=== PATIENT | male | born 1960 | race Caucasian/White ===

== ENCOUNTER 2019-02-21 19:28 | Inpatient (IN) | payer SELFPAY ==
[~2019-02-21] VITALS: Ht 177.8 cm; Wt 122.7 kg
[2019-02-21] VITALS (9 sets, daily range): BP systolic 142–187; BP diastolic 82–113
[~2019-02-21 19:28] MED LIST: ACCUPRIL20 MG PO; AMOXICILLIN500 M2 PO; COREG25 MG PO; DAYPRO600 M1; DAYPRO600 M1 PO; KEFLEX500 MG PO; MOTRIN600 MG PO; PERCOCET 325 MG1 TA2 PO; PHENERGAN25 M1 PO; TRAMADOL HCL50 MG PO
[2019-02-21 20:16] LABS: BASO % 0.4 % (0.0-1.0); EOS # 0.1 10*3/uL (0.0-0.4); EOS % 1.6 % (1.0-4.0); HEMATOCRIT 41.9 % (42.0-52.0); HEMOGLOBIN 13.3 g/dl (14.0-18.0); LYMPH # 2.7 10*3/uL (1.3-4.4); LYMPH % 37.9 % (27.0-41.0); MEAN CELL VOLUME 89.9 fl (80.0-94.0); MEAN CORPUSCULAR HGB 28.5 pg (27.0-31.0); MEAN CORPUSCULAR HGB CONC 31.7 g/dl (33.0-37.0); MEAN PLATELET VOLUME 10.9 fl (9.6-12.3); MONO # 0.8 10*3/uL (0.1-1.0); MONO % 11.3 % (3.0-9.0); NEUT # 3.4 10*3/uL (2.3-7.9); NEUT % 48.7 % (47.0-73.0); PLATELET COUNT AUTOMATED 196 10*3/uL (130-400); RED BLOOD COUNT 4.66 10*6/uL (4.50-5.90); RED CELL DISTRI WIDTH 13.3 % (0-14.5)
[2019-02-21 20:27] LABS: ACT PARTIAL THROMBO TIME 24.3 SECONDS (20.0-32.1)
[2019-02-21 20:34] LABS: ALBUMIN 3.6 gm/dl (3.1-4.5); ALKALINE PHOSPHATASE 96 U/L (45-117); BUN 22 mg/dl (7-24); CHLORIDE 105 mmol/L (98-107); CREATININE 1.09 mg/dL (0.70-1.30); POTASSIUM 4.3 mmol/L (3.5-5.1); SGOT/AST 13 IU/L (3-35); SGPT/ALT 21 U/L (12-78); SODIUM 140 mmol/L (136-145); TOTAL PROTEIN 7.4 gm/dL (6.4-8.2)
[2019-02-21 20:37] LABS: TROPONIN I < 0.015 ng/ml (<0.045)
--- NOTE | 2019-02-21 23:18 | NUR ---
SUE MC STATES THAT CHARLOTTE BEEBE DID NOT GIVE HER REPORT BEFORE LEAVING. STATES SHE DOES NOT KNOW MUCH ABOUT THE PATIENT AND I WILL HAVE TO LOOK MOST THINGS UP.
--- NOTE | 2019-02-21 23:20 | NUR ---
A 58, admitted to , under the services of JOSE MIGUEL Fontenot DO with a diagnosis of CHEST PAIN. Chief complaint is CHEST PAIN. Patient arrived via stretcher from ER. Monitor applied. Initial assessment completed. Vital signs taken and recorded. JOSE MIGUEL FONTENOT DO notified of admission to the unit. Orders received. See assessment for past medical history, medications and allergies. Patient and/or family oriented to unit. [facility]. Clothing/patient valuable form completed. SHERLYN URENA
--- NOTE | 2019-02-21 23:28 | NUR ---
MED REC COMPLETED WITH PATIENT ALERT AND ORIENTED
--- NOTE | 2019-02-21 23:42 | NUR ---
DR IGNACIO'S ANSWERING SERVICE AWARE OF CONSULT
[2019-02-22] VITALS: BP 152/82
[2019-02-22 04:00] VITALS: BP 114/66
[2019-02-22 06:17] LABS: BASO % 0.5 % (0.0-1.0); EOS # 0.1 10*3/uL (0.0-0.4); HEMATOCRIT 39.6 % (42.0-52.0); HEMOGLOBIN 12.6 g/dl (14.0-18.0); LYMPH # 2.5 10*3/uL (1.3-4.4); LYMPH % 41.4 % (27.0-41.0); MEAN CELL VOLUME 88.6 fl (80.0-94.0); MEAN CORPUSCULAR HGB 28.2 pg (27.0-31.0); MEAN CORPUSCULAR HGB CONC 31.8 g/dl (33.0-37.0); MEAN PLATELET VOLUME 11.2 fl (9.6-12.3); MONO # 0.8 10*3/uL (0.1-1.0); MONO % 13.3 % (3.0-9.0); NEUT # 2.6 10*3/uL (2.3-7.9); NEUT % 42.6 % (47.0-73.0); PLATELET COUNT AUTOMATED 195 10*3/uL (130-400); RED BLOOD COUNT 4.47 10*6/uL (4.50-5.90); RED CELL DISTRI WIDTH 13.4 % (0-14.5)
[2019-02-22 06:49] LABS: ALBUMIN 3.2 gm/dl (3.1-4.5); ALKALINE PHOSPHATASE 86 U/L (45-117); BUN 19 mg/dl (7-24); CHLORIDE 105 mmol/L (98-107); CHOLESTEROL 146 mg/dL (<200); CREATININE 0.87 mg/dL (0.70-1.30); FREE T4 0.88 ng/dl (0.76-1.46); HDL CHOLESTEROL 72 mg/dl (40-60); LDL CHOLESTEROL 48 mg/dL (9-159); PHOSPHOROUS 3.4 mg/dL (2.5-4.9); POTASSIUM 3.9 mmol/L (3.5-5.1); SGOT/AST 10 IU/L (3-35); SGPT/ALT 18 U/L (12-78); SODIUM 141 mmol/L (136-145); TOTAL PROTEIN 6.4 gm/dL (6.4-8.2); TRIGLYCERIDES 128 mg/dl (<150); VLDL CHOLESTEROL 26 mg/dL (6-40)
--- NOTE | 2019-02-22 08:00 | NUR ---
PT RESTING IN BED. RESP-EASY AND REGULAR. NO C/O AT THIS TIME. CALL LIGHT IN REACH. SEE SHIFT ASSESSMENT.
[2019-02-22 08:15] LABS: VITAMIN D, 25-HYDROXY 12.6 ng/mL (30-100)
[2019-02-22 08:30] VITALS: BP 118/72
--- NOTE | 2019-02-22 09:00 | NUR ---
Collection Analyst in to talk to patient. Patient states lives at home with alone. There are few steps in the home. Physician: john lucio Pharmacy: [facility] health services: none Patient's level of ADLs: INDEPENDENT Patient has working utilities: all working DME: none Follow-up physician's appointment after d/c: will be made by hospitalist nurse director upon discharge Does patient want to access PORTAL?: no Discharge plan discussed with patient, he lives at home alone, he is independent in adls and ambulation, works, drives, he will return home when medically stable and denies any home needs, case management will follow. SHANICE ABERNATHY
--- NOTE | 2019-02-22 11:10 | NUR ---
INFORMED CONSENT OBTAINED FOR LEXISCAN NUCLEAR STRESS TEST WITH DR. IGNACIO. RESTING EKG NSR WITH A RESTING HR OF 82 WITH BP OF 148/98. HAS INVERTED T WAVES IN LEADS II,III,AVF AND V4-V6. LUNGS WITH DIMINISHED BS WITH SPO2 OF 98% ON ROOM AIR. PT COMPLETED A 1:00 LEXISCAN PROTOCOL RECEIVING LEXISCAN 0.4 MG IV OVER 10 SECONDS. EKG NONDIAGNOSTIC WITH T WAVE INVERSIONS. HAD NO CHEST PAIN BUT DID C/O NAUSEA AND HEADACHE THAT WAS RELIEVED IN RECOVERY. HAD A PEAK HR OF 87 WITH BP OF 138/74. LAST RECOVERY HR OF 93 WITH BP OF 138/80. AWAITING SCANNING IN STABLE CONDITION.
[2019-02-22 12:00] VITALS: BP 132/79
--- NOTE | 2019-02-22 12:00 | NUR ---
RESTING IN BED. NO C/O AT THIS TIME. CALL LIGHT IN REACH.
--- NOTE | 2019-02-22 12:25 | NUR ---
[facility] RADIOLOGY RADIOLOGIST CALLED WITH +DVT IN LEFT AND MADE AWARE THROMBOPHLEBITS IN RIGHT. CALLED DR. BELL/DANIELLE MADE AWARE.
--- NOTE | 2019-02-22 13:30 | NUR ---
BSG-181, SEE EMAR. NO C/O AT THIS TIME. PT ADVISED TO STAY IN BED AND USED URINAL.
--- NOTE | 2019-02-22 14:00 | NUR ---
TOLERATED XARELTO, NO COMPLAINTS AT THIS TIME.
[2019-02-22 16:00] VITALS: BP 147/97
--- NOTE | 2019-02-22 16:10 | NUR ---
Patient resting quietly with no c/o discomfort. Respirations easy and regular. Vital signs stable. No overt distress. BAMBI THACKER
--- NOTE | 2019-02-22 17:46 | NUR ---
per dr parker resume coreg and quinapril
[2019-02-22 20:00] VITALS: BP 130/80
[2019-02-23] VITALS (7 sets, daily range): BP systolic 82–117; BP diastolic 52–77
--- NOTE | 2019-02-23 00:48 | NUR ---
NOTIFIED DR. CORSS OF LOW BLOOD PRESSURE ONLY ORDER WAS TO RECHECK BP BEFORE ANY GIVING ANY BP MEDICATIONS. NO OTHER ORDERS.
--- NOTE | 2019-02-23 01:54 | NUR ---
24 HR chart check completed.
[2019-02-23 06:28] LABS: BASO % 0.6 % (0.0-1.0); EOS # 0.1 10*3/uL (0.0-0.4); EOS % 2.6 % (1.0-4.0); HEMATOCRIT 41.4 % (42.0-52.0); HEMOGLOBIN 13.6 g/dl (14.0-18.0); LYMPH % 37.6 % (27.0-41.0); MEAN CELL VOLUME 87.9 fl (80.0-94.0); MEAN CORPUSCULAR HGB 28.9 pg (27.0-31.0); MEAN CORPUSCULAR HGB CONC 32.9 g/dl (33.0-37.0); MEAN PLATELET VOLUME 10.7 fl (9.6-12.3); MONO # 0.7 10*3/uL (0.1-1.0); MONO % 12.2 % (3.0-9.0); NEUT # 2.5 10*3/uL (2.3-7.9); NEUT % 46.8 % (47.0-73.0); PLATELET COUNT AUTOMATED 201 10*3/uL (130-400); RED BLOOD COUNT 4.71 10*6/uL (4.50-5.90); RED CELL DISTRI WIDTH 13.3 % (0-14.5); WHITE BLOOD COUNT 5.4 10*3/uL (4.8-10.8)
--- NOTE | 2019-02-23 06:33 | NUR ---
CALLED DR. CROSS AND ORDERS TO HOLD BP MEDICATION AND IV LASIX.
[2019-02-23 06:56] LABS: BUN 21 mg/dl (7-24); CHLORIDE 103 mmol/L (98-107); CREATININE 1.17 mg/dL (0.70-1.30); SODIUM 139 mmol/L (136-145)
--- NOTE | 2019-02-23 09:00 | NUR ---
PT RESTING IN BED EATING. RESP-EASY AND REGULAR. NO C/O AT THIS TIME. CALL LIGHT IN REACH. SEE SHIFT ASSESSMENT.
--- NOTE | 2019-02-23 09:00 | NUR ---
case management visits with patient, he states he will return home when medically stable, case management will follow
--- NOTE | 2019-02-23 17:00 | NUR ---
PT RESTING INB ED. BSG-211, SEE EMAR. NO C/O AT THIS TIME. CALL LIGHT IN REACH.
--- NOTE | 2019-02-24 04:48 | NUR ---
24 HR chart check completed.
--- NOTE | 2019-02-24 05:40 | NUR ---
BP CHECK AND CALLED DR. MAURER AND HOLDING COREG AND LASIX AT THIS TIME D/T LOW BP.
[2019-02-24 06:47] LABS: BASO % 0.6 % (0.0-1.0); EOS # 0.2 10*3/uL (0.0-0.4); EOS % 2.4 % (1.0-4.0); LYMPH # 2.7 10*3/uL (1.3-4.4); LYMPH % 41.7 % (27.0-41.0); MEAN CELL VOLUME 89.1 fl (80.0-94.0); MEAN CORPUSCULAR HGB 28.3 pg (27.0-31.0); MEAN CORPUSCULAR HGB CONC 31.8 g/dl (33.0-37.0); MEAN PLATELET VOLUME 11.1 fl (9.6-12.3); MONO # 0.9 10*3/uL (0.1-1.0); MONO % 13.4 % (3.0-9.0); NEUT # 2.7 10*3/uL (2.3-7.9); NEUT % 41.6 % (47.0-73.0); PLATELET COUNT AUTOMATED 186 10*3/uL (130-400); RED BLOOD COUNT 4.94 10*6/uL (4.50-5.90); RED CELL DISTRI WIDTH 13.6 % (0-14.5); WHITE BLOOD COUNT 6.6 10*3/uL (4.8-10.8)
[2019-02-24 07:28] LABS: CHLORIDE 104 mmol/L (98-107); SODIUM 141 mmol/L (136-145)
[2019-02-24 07:32] LABS: CREATININE 1.16 mg/dL (0.70-1.30)
[2019-02-24 07:50] LABS: BUN 32 mg/dl (7-24)
[2019-02-24 08:30] VITALS: BP 94/62
--- NOTE | 2019-02-24 08:31 | NUR ---
DR YEAGER IN PT ROOM AND IS NOTIFIED OF PT BP
[2019-02-24 08:53] VITALS: BP 104/62
--- NOTE | 2019-02-24 08:53 | NUR ---
CALLED DR YEAGER TO UPDATE HIM ON NEW BP 104/62 AND HE STATES TO HOLD LISINOPRIL AND THE ALDACTONE
--- NOTE | 2019-02-24 09:00 | NUR ---
case management visits with patient, patient a possible discharge to home today, denies any home needs
[2019-02-24 12:00] VITALS: BP 123/68
[2019-02-24] MEDS ORDERED: ALDACTONE25 MG PO (14:07)
[2019-02-24] MEDS ORDERED: VITAMIN D5000 UNIT PO (14:07)
[2019-02-24] MEDS ORDERED: CARVEDILOL6.25 MG PO (14:07)
[2019-02-24] MEDS ORDERED: XARELTO1 EACH PO (14:07)
[2019-02-24] MEDS ORDERED: LISINOPRIL10 M1 PO (14:07)
[2019-02-24] MEDS ORDERED: XARELTO20 M1 PO (14:07)
[2019-02-24] MEDS ORDERED: LASIX40 MG PO (14:07)
--- NOTE | 2019-02-24 14:46 | NUR ---
Discharge instructions reviewed with patient/family. Patient receptive and verbalizes understanding. Follow-up care arranged. Written instructions given to patienT. PATIENT IS ADVISED TO GO TO FLOOR 3 TO C S S REPRESENTATIVE MEDICATIONS AT THE [facility]. HEART MONITOR REMOVED AND IV IS TAKEN OUT. WORK EXCUSE IS GIVEN TO THE PATIENT AND PT STATES THAT HE UNDERSTANDS HIS DISCHARGE INSTRUCTIONS
--- NOTE | 2019-02-24 14:49 | NUR ---
PT LEAVING THE FLOOR AT THIS TIME AND HAS ALL OF HIS BELONGINGS.
== END 2019-02-24 15:17 | disposition home or self-care (01) | DRG 300 ==
LOC: ED 19:28 → EDHOLD 21:28 → 4E 21:28
PROVIDERS: Emergency Medicine; Family Medicine; Internal Medicine; ADMIT Internal Medicine
PROC: 4A02XM4 Measurement of Cardiac Total Activity, External Approach (ICD-10-PCS; principal; 2019-02-22)
PROC: 3E073KZ Introduction of Other Diagnostic Substance into Coronary Artery, Percutaneous Approach (ICD-10-PCS; principal; 2019-02-22)
DX: I82.432 Acute embolism and thrombosis of left popliteal vein (principal); I16.1 Hypertensive emergency; I50.40 Unspecified combined systolic (congestive) and diastolic (congestive) heart failure; I82.412 Acute embolism and thrombosis of left femoral vein; I82.442 Acute embolism and thrombosis of left tibial vein; I08.1 Rheumatic disorders of both mitral and tricuspid valves; E11.65 Type 2 diabetes mellitus with hyperglycemia; D64.9 Anemia, unspecified; K21.9 Gastro-esophageal reflux disease without esophagitis; E53.8 Deficiency of other specified B group vitamins; E55.9 Vitamin D deficiency, unspecified; I11.0 Hypertensive heart disease with heart failure; I95.9 Hypotension, unspecified; I25.10 Atherosclerotic heart disease of native coronary artery without angina pectoris; Z88.1 Allergy status to other antibiotic agents; Z82.49 Family history of ischemic heart disease and other diseases of the circulatory system; Z83.3 Family history of diabetes mellitus

== ENCOUNTER → 2019-12-16 | Outpatient (CLI) | payer SELFPAY ==
[~2019-12-16] MED LIST changes: +ALDACTONE25 MG PO; +CARVEDILOL6.25 MG PO; +LASIX40 MG PO; +LISINOPRIL10 M1 PO; +VITAMIN D5000 UNIT PO; +XARELTO1 EACH PO; +XARELTO20 M1 PO
== END | disposition home or self-care (01) ==
LOC: RESCLI 09:54
PROVIDERS: ATTEND Emergency Medicine
DX: E11.65 Type 2 diabetes mellitus with hyperglycemia (principal); I11.0 Hypertensive heart disease with heart failure; I50.22 Chronic systolic (congestive) heart failure; K21.00 Gastro-esophageal reflux disease with esophagitis, without bleeding; I82.523 Chronic embolism and thrombosis of iliac vein, bilateral; Z79.899 Other long term (current) drug therapy; Z88.0 Allergy status to penicillin

== ENCOUNTER → 2019-12-16 | Outpatient (CLI) | payer SELFPAY ==
[2019-12-16 08:10] LABS: BASO % 0.4 % (0.0-1.0); EOS # 0.1 10*3/uL (0.0-0.4); EOS % 1.9 % (1.0-4.0); HEMATOCRIT 38.9 % (42.0-52.0); LYMPH % 38.5 % (27.0-41.0); MEAN CELL VOLUME 87.4 fl (80.0-94.0); MEAN CORPUSCULAR HGB 28.5 pg (27.0-31.0); MEAN CORPUSCULAR HGB CONC 32.6 g/dl (33.0-37.0); MEAN PLATELET VOLUME 10.4 fl (9.6-12.3); MONO # 0.6 10*3/uL (0.1-1.0); MONO % 12.1 % (3.0-9.0); NEUT # 2.4 10*3/uL (2.3-7.9); NEUT % 46.9 % (47.0-73.0); PLATELET COUNT AUTOMATED 190 10*3/uL (130-400); RED BLOOD COUNT 4.45 10*6/uL (4.50-5.90); RED CELL DISTRI WIDTH 12.4 % (0-14.5); WHITE BLOOD COUNT 5.2 10*3/uL (4.8-10.8)
[2019-12-16 08:47] LABS: ALBUMIN 3.7 gm/dl (3.1-4.5); ALKALINE PHOSPHATASE 93 U/L (45-117); BILIRUBIN, DIRECT 0.1 mg/dL (0.0-0.2); BUN 18 mg/dl (7-24); CHLORIDE 101 mmol/L (98-107); CREATININE 0.99 mg/dL (0.70-1.30); POTASSIUM 4.3 mmol/L (3.5-5.1); SGOT/AST 17 IU/L (3-35); SGPT/ALT 22 U/L (12-78); SODIUM 135 mmol/L (136-145); TOTAL PROTEIN 7.3 gm/dL (6.4-8.2)
== END | disposition home or self-care (01) ==
LOC: LAB 07:53
PROVIDERS: ATTEND Family Medicine
DX: I10 Essential (primary) hypertension (principal); E11.9 Type 2 diabetes mellitus without complications

== ENCOUNTER → 2020-03-30 | Outpatient (CLI) | payer SELFPAY | END | disposition home or self-care (01) | LOC: RESCLI 01:34 | PROVIDERS: ATTEND Internal Medicine | DX: E11.65 Type 2 diabetes mellitus with hyperglycemia (principal); I11.0 Hypertensive heart disease with heart failure; I50.22 Chronic systolic (congestive) heart failure; I82.523 Chronic embolism and thrombosis of iliac vein, bilateral; E55.9 Vitamin D deficiency, unspecified; E53.8 Deficiency of other specified B group vitamins; G56.22 Lesion of ulnar nerve, left upper limb; E11.42 Type 2 diabetes mellitus with diabetic polyneuropathy; K21.9 Gastro-esophageal reflux disease without esophagitis; Z79.899 Other long term (current) drug therapy; Z88.0 Allergy status to penicillin ==

== ENCOUNTER → 2020-03-31 | Outpatient (CLI) | payer SELFPAY ==
[2020-03-31 10:50] LABS: CHOLESTEROL 182 mg/dL (<200); HDL CHOLESTEROL 83 mg/dl (40-60); LDL CHOLESTEROL 66 mg/dL (9-159); TRIGLYCERIDES 167 mg/dl (<150); VLDL CHOLESTEROL 33 mg/dL (6-40)
[2020-03-31 11:15] LABS: VITAMIN D, 25-HYDROXY 7.2 ng/mL (30-100)
== END | disposition home or self-care (01) ==
LOC: LAB 09:30
PROVIDERS: ATTEND Hospitalist
DX: E11.65 Type 2 diabetes mellitus with hyperglycemia (principal); E55.9 Vitamin D deficiency, unspecified; E53.8 Deficiency of other specified B group vitamins

== ENCOUNTER → 2020-04-16 | Outpatient (CLI) | payer SELFPAY | END | disposition home or self-care (01) | LOC: RESCLI 01:44 | PROVIDERS: ATTEND Internal Medicine Nephrology | DX: R07.9 Chest pain, unspecified (principal); I50.22 Chronic systolic (congestive) heart failure; E11.42 Type 2 diabetes mellitus with diabetic polyneuropathy; I82.523 Chronic embolism and thrombosis of iliac vein, bilateral; E55.9 Vitamin D deficiency, unspecified; H61.20 Impacted cerumen, unspecified ear; K21.9 Gastro-esophageal reflux disease without esophagitis; I11.0 Hypertensive heart disease with heart failure; I50.9 Heart failure, unspecified; H72.91 Unspecified perforation of tympanic membrane, right ear; E78.2 Mixed hyperlipidemia; Z88.0 Allergy status to penicillin; Z79.899 Other long term (current) drug therapy; Z79.84 Long term (current) use of oral hypoglycemic drugs ==

== ENCOUNTER → 2020-08-03 | Outpatient (CLI) | payer SELFPAY | END | disposition home or self-care (01) | LOC: RESCLI 01:45 | PROVIDERS: ATTEND Internal Medicine | DX: I11.0 Hypertensive heart disease with heart failure (principal); I50.22 Chronic systolic (congestive) heart failure; E78.2 Mixed hyperlipidemia; E11.42 Type 2 diabetes mellitus with diabetic polyneuropathy; E55.9 Vitamin D deficiency, unspecified; H57.12 Ocular pain, left eye; Z79.899 Other long term (current) drug therapy ==

== ENCOUNTER → 2020-10-17 | Outpatient (CLI) | payer SELFPAY ==
[2020-10-17 15:15] LABS: BASO % 0.3 % (0.0-1.0); EOS # 0.1 10*3/uL (0.0-0.4); EOS % 1.5 % (1.0-4.0); HEMATOCRIT 38.9 % (42.0-52.0); LYMPH # 2.1 10*3/uL (1.3-4.4); LYMPH % 34.9 % (27.0-41.0); MEAN CELL VOLUME 87.2 fl (80.0-94.0); MEAN CORPUSCULAR HGB 28.7 pg (27.0-31.0); MEAN CORPUSCULAR HGB CONC 32.9 g/dl (33.0-37.0); MEAN PLATELET VOLUME 10.7 fl (9.6-12.3); MONO # 0.7 10*3/uL (0.1-1.0); MONO % 11.3 % (3.0-9.0); NEUT # 3.1 10*3/uL (2.3-7.9); NEUT % 51.7 % (47.0-73.0); PLATELET COUNT AUTOMATED 200 10*3/uL (130-400); RED BLOOD COUNT 4.46 10*6/uL (4.50-5.90); RED CELL DISTRI WIDTH 13.1 % (0-14.5)
[2020-10-18 11:07] LABS: CREATININE,URINE 32.5 mg/dL (Not Estab.); MICRO ALBUMIN/CRE RATIO <9 (0-29)
== END | disposition home or self-care (01) ==
LOC: LAB 01:08 → RESCLI 01:08
PROVIDERS: Internal Medicine; ATTEND Internal Medicine Nephrology
DX: E55.9 Vitamin D deficiency, unspecified (principal); E11.42 Type 2 diabetes mellitus with diabetic polyneuropathy; I10 Essential (primary) hypertension; E78.2 Mixed hyperlipidemia

== ENCOUNTER → 2021-04-10 | Outpatient (CLI) | payer SELFPAY | END | disposition home or self-care (01) | LOC: RESCLI 01:36 | PROVIDERS: ATTEND Internal Medicine Nephrology | DX: E11.42 Type 2 diabetes mellitus with diabetic polyneuropathy (principal); I11.0 Hypertensive heart disease with heart failure; I50.22 Chronic systolic (congestive) heart failure; E78.5 Hyperlipidemia, unspecified; E55.9 Vitamin D deficiency, unspecified; Z79.899 Other long term (current) drug therapy ==

== ENCOUNTER 2021-06-17 06:07 | Emergency (ER) | payer SELFPAY ==
[~2021-06-17] VITALS: Ht 177.8 cm; Wt 99.8 kg
[2021-06-17 06:43] LABS: BASO % 0.7 % (0.0-1.0); EOS % 0.4 % (1.0-4.0); HEMATOCRIT 39.6 % (42.0-52.0); LYMPH # 0.5 10*3/uL (1.3-4.4); MEAN CELL VOLUME 88.2 fl (80.0-94.0); MEAN CORPUSCULAR HGB CONC 32.8 g/dl (33.0-37.0); MEAN PLATELET VOLUME 10.1 fl (9.6-12.3); MONO # 0.8 10*3/uL (0.1-1.0); MONO % 18.3 % (3.0-9.0); NEUT # 3.2 10*3/uL (2.3-7.9); NEUT % 70.2 % (47.0-73.0); PLATELET COUNT AUTOMATED 190 10*3/uL (130-400); RED BLOOD COUNT 4.49 10*6/uL (4.50-5.90); RED CELL DISTRI WIDTH 13.1 % (0-14.5); WHITE BLOOD COUNT 4.6 10*3/uL (4.8-10.8)
[2021-06-17 06:57] LABS: ALKALINE PHOSPHATASE 83 U/L (45-117); BUN 15 mg/dl (7-24); CHLORIDE 101 mmol/L (98-107); CREATININE 1.02 mg/dL (0.70-1.30); POTASSIUM 4.5 mmol/L (3.5-5.1); SGOT/AST 22 IU/L (3-35); SGPT/ALT 19 U/L (12-78); SODIUM 133 mmol/L (136-145); TOTAL PROTEIN 7.3 gm/dL (6.4-8.2)
== END 2021-06-17 08:17 | disposition home or self-care (01) ==
LOC: ED 06:07
PROVIDERS: Internal Medicine
DX: U07.1 COVID-19 (principal); Z88.1 Allergy status to other antibiotic agents

== ENCOUNTER → 2022-04-15 | Outpatient (CLI) | payer SELFPAY ==
[2022-04-15 13:41] LABS: BASO % 0.5 % (0.0-1.0); EOS # 0.1 10*3/uL (0.0-0.4); EOS % 1.6 % (1.0-4.0); HEMATOCRIT 41.8 % (42.0-52.0); LYMPH # 2.2 10*3/uL (1.3-4.4); LYMPH % 39.3 % (27.0-41.0); MEAN CELL VOLUME 89.7 fl (80.0-94.0); MEAN CORPUSCULAR HGB 29.4 pg (27.0-31.0); MEAN CORPUSCULAR HGB CONC 32.8 g/dl (33.0-37.0); MEAN PLATELET VOLUME 10.3 fl (9.6-12.3); MONO # 0.7 10*3/uL (0.1-1.0); MONO % 11.7 % (3.0-9.0); NEUT # 2.6 10*3/uL (2.3-7.9); NEUT % 46.7 % (47.0-73.0); PLATELET COUNT AUTOMATED 217 10*3/uL (130-400); RED BLOOD COUNT 4.66 10*6/uL (4.50-5.90); RED CELL DISTRI WIDTH 13.2 % (0-14.5); WHITE BLOOD COUNT 5.6 10*3/uL (4.8-10.8)
[2022-04-15 13:58] LABS: ALKALINE PHOSPHATASE 79 U/L (46-116); BUN 14 mg/dl (9-23); CHLORIDE 101 mmol/L (98-107); POTASSIUM 4.2 mmol/L (3.4-5.1); SGPT/ALT 10 U/L (10-49); TOTAL PROTEIN 7.1 gm/dL (6.0-8.0)
== END | disposition home or self-care (01) ==
LOC: RESCLI 13:05
PROVIDERS: Family Medicine; ATTEND Internal Medicine
DX: E11.42 Type 2 diabetes mellitus with diabetic polyneuropathy (principal); E55.9 Vitamin D deficiency, unspecified; E78.2 Mixed hyperlipidemia; I11.0 Hypertensive heart disease with heart failure; I50.22 Chronic systolic (congestive) heart failure; Z88.0 Allergy status to penicillin; Z82.49 Family history of ischemic heart disease and other diseases of the circulatory system; Z79.899 Other long term (current) drug therapy

== ENCOUNTER → 2022-09-17 | Outpatient (CLI) | payer SELFPAY | END | disposition home or self-care (01) | LOC: RESCLI 16:05 | PROVIDERS: ATTEND Internal Medicine | DX: M17.11 Unilateral primary osteoarthritis, right knee (principal); I11.0 Hypertensive heart disease with heart failure; I50.22 Chronic systolic (congestive) heart failure; E11.42 Type 2 diabetes mellitus with diabetic polyneuropathy; E78.2 Mixed hyperlipidemia; E55.9 Vitamin D deficiency, unspecified; E11.9 Type 2 diabetes mellitus without complications; Z88.0 Allergy status to penicillin; Z88.8 Allergy status to other drugs, medicaments and biological substances ==

== ENCOUNTER 2023-10-25 13:54 | Emergency (ER) | payer OTHER ==
[~2023-10-25] VITALS: Ht 180.3 cm; Wt 112.5 kg
[2023-10-25] MEDS ORDERED: Metoclopramide Hydrochloride 10 MG/2 ML AMP IV ONE (14:40)
[2023-10-25] MEDS ORDERED: SODIUM CHLORIDE 0.9% 1,000 ML IV ONE (14:40)
[2023-10-25] MEDS ORDERED: diphenhydrAMINE hydrochloride 50 MG/ML VIAL IV ONE (14:40)
[2023-10-25 15:03] LABS: BASO % 0.2 % (0.0-1.0); EOS # 0.1 10*3/uL (0.0-0.4); EOS % 0.6 % (1.0-4.0); HEMATOCRIT 38.8 % (42.0-52.0); LYMPH # 0.7 10*3/uL (1.3-4.4); LYMPH % 8.4 % (27.0-41.0); MEAN CELL VOLUME 90.4 fl (80.0-94.0); MEAN CORPUSCULAR HGB 29.1 pg (27.0-31.0); MEAN CORPUSCULAR HGB CONC 32.2 g/dl (33.0-37.0); MEAN PLATELET VOLUME 10.8 fl (9.6-12.3); MONO # 1.2 10*3/uL (0.1-1.0); MONO % 13.6 % (3.0-9.0); NEUT # 6.7 10*3/uL (2.3-7.9); PLATELET COUNT AUTOMATED 163 10*3/uL (130-400); RED BLOOD COUNT 4.29 10*6/uL (4.50-5.90); RED CELL DISTRI WIDTH 13.2 % (0-14.5); WHITE BLOOD COUNT 8.7 10*3/uL (4.8-10.8)
[2023-10-25 15:18] LABS: BUN 16 mg/dl (9-23); CHLORIDE 100 mmol/L (98-107); POTASSIUM 4.3 mmol/L (3.4-5.1)
[2023-10-25] MEDS ORDERED: Ondansetron4 MG PO (15:32)
[2023-10-25] MEDS ORDERED: AVPAK AZITHROM250 M1 PO (15:32)
[2023-10-25] MEDS ORDERED: ANTI-DIARRHEAL2 MG PO (15:32)
== END 2023-10-25 16:05 | disposition home or self-care (01) ==
LOC: ED 13:54
PROVIDERS: Emergency Medicine
DX: J32.9 Chronic sinusitis, unspecified (principal); Z20.822 Contact with and (suspected) exposure to COVID-19; R11.2 Nausea with vomiting, unspecified; R19.7 Diarrhea, unspecified; E11.9 Type 2 diabetes mellitus without complications; I10 Essential (primary) hypertension; E78.5 Hyperlipidemia, unspecified; Z88.1 Allergy status to other antibiotic agents; Z95.5 Presence of coronary angioplasty implant and graft

== ENCOUNTER → 2023-12-15 | Outpatient (CLI) | payer OTHER ==
[~2023-12-15] MED LIST changes: +ANTI-DIARRHEAL2 MG PO; +AVPAK AZITHROM250 M1 PO; +Ondansetron4 MG PO
== END | disposition home or self-care (01) ==
LOC: RESCLI 03:37
PROVIDERS: ATTEND Family Medicine
DX: I11.0 Hypertensive heart disease with heart failure (principal); I50.22 Chronic systolic (congestive) heart failure; M17.9 Osteoarthritis of knee, unspecified; E55.9 Vitamin D deficiency, unspecified; E11.9 Type 2 diabetes mellitus without complications; K21.9 Gastro-esophageal reflux disease without esophagitis; Z79.899 Other long term (current) drug therapy; Z88.0 Allergy status to penicillin

== ENCOUNTER 2024-02-24 16:40 | Emergency (ER) | payer OTHER ==
[~2024-02-24] VITALS: Ht 177.8 cm; Wt 108.9 kg
[2024-02-24 17:17] LABS: BASO % 0.3 % (0.0-1.0); EOS # 0.1 10*3/uL (0.0-0.4); EOS % 1.4 % (1.0-4.0); HEMATOCRIT 39.2 % (42.0-52.0); MEAN CELL VOLUME 89.5 fl (80.0-94.0); MEAN CORPUSCULAR HGB 28.3 pg (27.0-31.0); MEAN CORPUSCULAR HGB CONC 31.6 g/dl (33.0-37.0); MEAN PLATELET VOLUME 10.6 fl (9.6-12.3); MONO # 1.1 10*3/uL (0.1-1.0); MONO % 10.7 % (3.0-9.0); NEUT # 6.9 10*3/uL (2.3-7.9); PLATELET COUNT AUTOMATED 240 10*3/uL (130-400); RED BLOOD COUNT 4.38 10*6/uL (4.50-5.90); RED CELL DISTRI WIDTH 13.3 % (0-14.5); WHITE BLOOD COUNT 10.1 10*3/uL (4.8-10.8)
[2024-02-24 17:42] LABS: ALKALINE PHOSPHATASE 108 U/L (46-116); BUN 15 mg/dl (9-23); CHLORIDE 103 mmol/L (98-107); LDH 223 U/L (120-246); LIPASE 38 U/L (12-53); POTASSIUM 4.3 mmol/L (3.4-5.1); SGPT/ALT 11 U/L (5-49)
[2024-02-24 18:23] LABS: ACT PARTIAL THROMBO TIME 27.4 SECONDS (20.0-32.1)
[2024-02-24] MEDS ORDERED: MAGNESIUM SULFATE 50 ML IV ONE (18:50)
[2024-02-24] MEDS ORDERED: IOHEXOL 350 MG/ML 100 ML VIAL IV ONE ×2 (18:50→19:14)
[2024-02-24] MEDS ORDERED: SODIUM CHLORIDE 0.9% 100 ML BAG IV ONE (18:50)
[2024-02-24] MEDS ORDERED: ZITHROMAX250 MG PO (18:52)
[2024-02-24] MEDS ORDERED: AZITHROMYCIN 250 MG TAB PO ONE (18:55)
[2024-02-24] MEDS ORDERED: SODIUM CHLORIDE 0.9% 100 ML IV ONE (19:15)
== END 2024-02-24 21:16 | disposition home or self-care (01) ==
LOC: ED 16:40
PROVIDERS: Emergency Medicine
DX: J40 Bronchitis, not specified as acute or chronic (principal); Z20.822 Contact with and (suspected) exposure to COVID-19; R06.02 Shortness of breath; E11.9 Type 2 diabetes mellitus without complications; I11.0 Hypertensive heart disease with heart failure; I50.9 Heart failure, unspecified; K21.9 Gastro-esophageal reflux disease without esophagitis; Z88.1 Allergy status to other antibiotic agents; Z95.5 Presence of coronary angioplasty implant and graft; Z86.718 Personal history of other venous thrombosis and embolism

== ENCOUNTER 2025-01-12 06:17 | Emergency (ER) | payer MEDICARE ==
[~2025-01-12 06:17] MED LIST changes: +ZITHROMAX250 MG PO
[2025-01-12] MEDS ORDERED: METFORMIN HYDR500 MG PO (06:42)
[2025-01-12 10:25] LABS: BASO # 0.0 10*3/uL (0.0-0.1); BASO % 0.6 % (0.0-1.0); EOS # 0.1 10*3/uL (0.0-0.4); EOS % 2.1 % (1.0-4.0); MEAN CELL VOLUME 89.8 fl (80.0-94.0); MEAN CORPUSCULAR HGB 28.4 pg (27.0-31.0); MEAN PLATELET VOLUME 10.4 fl (9.6-12.3); MONO # 0.9 10*3/uL (0.1-1.0); MONO % 12.6 % (3.0-9.0); NEUT # 3.8 10*3/uL (2.3-7.9); NEUT % 56.3 % (47.0-73.0); NUCLEATED RED BLOOD CELL 0.0 % (0.0-0.0); NUCLEATED RED BLOOD CELL 0.0 10*3/uL (0.0-0.0); PLATELET COUNT AUTOMATED 184 10*3/uL (130-400); RED CELL DISTRI WIDTH 13.2 % (0-14.5)
[2025-01-12 10:54] LABS: BUN 20 mg/dl (9-23); SGPT/ALT 7 U/L (5-49)
[2025-01-12] MEDS ORDERED: LEVOFLOXACIN500 MG PO (14:28)
== END 2025-01-12 16:10 | disposition home or self-care (01) ==
LOC: ED 06:17
DX: R07.89 Other chest pain (principal); R10.9 Unspecified abdominal pain; R14.0 Abdominal distension (gaseous); I10 Essential (primary) hypertension; E11.9 Type 2 diabetes mellitus without complications; Z88.1 Allergy status to other antibiotic agents

== ENCOUNTER → 2025-02-07 | Outpatient (CLI) | payer MEDICARE ==
[~2025-02-07] MED LIST changes: +LEVOFLOXACIN500 MG PO; +METFORMIN HYDR500 MG PO; +Regadenoson 0.4 MG/5 ML SYR IV ONE; +Technetium Tc 99M Tetrofosmi 0.23 MG KIT IJ SCH
== END | disposition home or self-care (01) ==
LOC: CARD 01:52
PROVIDERS: ATTEND Internal Medicine Cardiovascular Disease
DX: I51.7 Cardiomegaly (principal); I50.32 Chronic diastolic (congestive) heart failure; R94.31 Abnormal electrocardiogram [ECG] [EKG]; R06.02 Shortness of breath